=== PATIENT | female | born 1945 | race Caucasian/White ===

== ENCOUNTER → 2017-01-28 | Outpatient (CLI) | payer OTHER, BC ==
[~2017-01-28] MED LIST: ADULT LOW DOSE81 MG PO; ADVIL MIGRAINE200 MG PO; AMBIEN 5 MG TABL5 M1 PO; BENICAR40 MG PO; CENTRUM SILVER1 EAC1 PO; CENTRUM SILVER1 EAC4 PO; CIPRO250 M1 PO; FIBERCON625 M1 PO; FLAGYL500 MG PO; FUROSEMIDE 20 M20 MG GT; LOPRESSOR PO; LUNESTA PO; OMEPRAZOLE PO; SIMVASTATIN; SPIRONOLACTONE25 M1 PO; TRAMADOL 50 MG50 MG PO; ZOCOR 20 MG TAB20 M1 PO
== END ==
LOC: SLEEPLAB 11:22
DX: G47.33 Obstructive sleep apnea (adult) (pediatric) (principal)

== ENCOUNTER 2019-08-08 16:43 | Emergency (ER) | payer OTHER, BC ==
[~2019-08-08] VITALS: Ht 167.6 cm; Wt 86.2 kg
[~2019-08-08 16:43] MED LIST changes: -FUROSEMIDE 20 M20 MG GT; +FUROSEMIDE 20 M20 MG PO
[2019-08-08 16:59] LABS: URINE BILIRUBIN NEGATIVE (Negative); URINE BLOOD TRACE (Negative); URINE CLARITY CLEAR; URINE COLOR YELLOW; URINE GLUCOSE-RANDOM* NEGATIVE (Negative); URINE KETONES NEGATIVE (Negative); URINE LEUKOCYTES-REFLEX NEGATIVE (Negative); URINE NITRITE-REFLEX NEGATIVE (Negative); URINE PROTEIN (DIPSTICK) 3+ (Negative); URINE SPECIFIC GRAVITY 1.025 (1.005-1.035); URINE UROBILINOGEN 0.2 E.U./dl (0.2-1.0)
[2019-08-08] MEDS ORDERED: FAMOTIDINE 40 M40 M1 PO (17:06)
[2019-08-08] MEDS ORDERED: ELIQUIS2.5 MG PO (17:06)
[2019-08-08] MEDS ORDERED: CARVEDILOL12.5 MG PO (17:07)
[2019-08-08] MEDS ORDERED: COLESTIPOL HCL1 G1 PO (17:07)
[2019-08-08] MEDS ORDERED: BENICAR20 MG PO (17:07)
[2019-08-08 17:13] LABS: BACTERIA-REFLEX 1-9 Few /HPF (None Seen); CASTS None Seen /LPF (None Seen); CRYSTALS None Seen /LPF (None Seen); SQUAMOUS 0-3 Few /LPF (0-3); URINE WBC-REFLEX 0-5 Rare /HPF (0-5)
[2019-08-08 17:14] LABS: URINE RBC None Seen /HPF (0-2)
[2019-08-08 17:17] LABS: ABSOLUTE NEUTROPHILS 4.3 thou/uL (1.4-8.2); BASOPHILS 0.5 % (0.0-2.0); EOSINOPHILS 0.8 % (0.0-3.0); HEMATOCRIT 35.3 % (37.0-47.0); HEMOGLOBIN 11.7 gm/dL (12.0-15.0); LYMPHOCYTES 13.6 % (24.0-44.0); MCH 31.3 pg (26.0-34.0); MCHC 33.1 g/dL (28.0-37.0); MCV 94.5 fL (80.0-100.0); MONOCYTES 8.5 % (1.0-8.0); PLATELET COUNT 314 thou/uL (150-400); POLYS 76.6 % (36.0-66.0); RBC 3.73 mil/uL (4.20-5.00); RDW 13.5 % (10.5-14.5); WBC 5.7 thou/uL (4.0-11.0)
[2019-08-08 17:24] LABS: CREATININE 3.2 mg/dL (0.6-1.0); POTASSIUM 5.1 mmol/L (3.5-5.1)
[2019-08-08 17:30] LABS: ALBUMIN 4.2 g/dL (3.4-5.0); TOTAL BILIRUBIN 0.3 mg/dL (<0.1-1.0); TOTAL PROTEIN 8.5 g/dL (6.4-8.2)
[2019-08-08] MEDS ORDERED: ONDANSETRON HCL4 M2 PO (18:56)
[2019-08-08 19:48] VITALS: BP 159/55
== END 2019-08-08 19:49 | disposition home or self-care (01) ==
LOC: ER 16:43
PROVIDERS: Physician Assistant
DX: K52.9 Noninfective gastroenteritis and colitis, unspecified (principal); E86.0 Dehydration; R11.2 Nausea with vomiting, unspecified; I10 Essential (primary) hypertension; Z96.653 Presence of artificial knee joint, bilateral; Z90.49 Acquired absence of other specified parts of digestive tract; Z88.2 Allergy status to sulfonamides; Z88.8 Allergy status to other drugs, medicaments and biological substances

== ENCOUNTER → 2021-03-20 | Outpatient (CLI) | payer OTHER, BC ==
[~2021-03-20] MED LIST changes: +BENICAR20 MG PO; +CARVEDILOL12.5 MG PO; +COLESTIPOL HCL1 G1 PO; +ELIQUIS2.5 MG PO; +FAMOTIDINE 40 M40 M1 PO; +ONDANSETRON HCL4 M2 PO
== END ==
LOC: SJCVC 13:14
PROVIDERS: ATTEND Internal Medicine
DX: I48.0 Paroxysmal atrial fibrillation (principal); I12.9 Hypertensive chronic kidney disease with stage 1 through stage 4 chronic kidney disease, or unspecified chronic kidney disease; N18.9 Chronic kidney disease, unspecified; E78.5 Hyperlipidemia, unspecified; G47.33 Obstructive sleep apnea (adult) (pediatric); Z72.89 Other problems related to lifestyle; Z88.2 Allergy status to sulfonamides; Z79.899 Other long term (current) drug therapy

== ENCOUNTER → 2021-04-17 | Outpatient (CLI) | payer OTHER, BC | LOC: SJCVCIMAG 08:17 | PROVIDERS: ATTEND Internal Medicine | DX: I08.8 Other rheumatic multiple valve diseases (principal); I48.91 Unspecified atrial fibrillation; E78.5 Hyperlipidemia, unspecified; G47.33 Obstructive sleep apnea (adult) (pediatric); I12.9 Hypertensive chronic kidney disease with stage 1 through stage 4 chronic kidney disease, or unspecified chronic kidney disease; Z88.2 Allergy status to sulfonamides; Z88.8 Allergy status to other drugs, medicaments and biological substances; Z72.89 Other problems related to lifestyle; Z79.899 Other long term (current) drug therapy ==